=== PATIENT | female | born 1990 | race African-American/Black ===

== ENCOUNTER 2020-11-23 18:58 | Emergency (ER) | payer BC ==
[~2020-11-23] VITALS: Ht 190.5 cm; Wt 82.0 kg
[2020-11-23] MEDS ORDERED: LIDOCAINE HCL/EPINEPHRINE 1%-EPI 1:100,000 20 ML VIAL INFIL ONE (20:30)
[2020-11-23] MEDS ORDERED: AMOX-424 MT (22:53)
[2020-11-23] MEDS ORDERED: IBUP-2029 MT (22:53)
[2020-11-23 23:00] VITALS: BP 128/68
== END 2020-11-24 00:12 | disposition home or self-care (01) ==
LOC: ER 18:58
DX: S01.511A Laceration without foreign body of lip, initial encounter (principal); V49.49XA Driver injured in collision with other motor vehicles in traffic accident, initial encounter; Y93.89 Activity, other specified; Y92.89 Other specified places as the place of occurrence of the external cause; Y99.8 Other external cause status
CPT/HCPCS: 12015; 99282; J3490

== ENCOUNTER 2020-11-30 19:32 | Emergency (ER) | payer BC ==
[~2020-11-30] VITALS: Ht 190.5 cm; Wt 82.0 kg
[~2020-11-30 19:32] MED LIST: AMOX-424 MT; IBUP-2029 MT
[2020-11-30 19:46] VITALS: BP 115/72
== END 2020-11-30 20:27 | disposition home or self-care (01) ==
LOC: ER 19:32
DX: S01.81XD Laceration without foreign body of other part of head, subsequent encounter (principal); Z88.8 Allergy status to other drugs, medicaments and biological substances; Z79.899 Other long term (current) drug therapy; X58.XXXD Exposure to other specified factors, subsequent encounter
CPT/HCPCS: 99281

== ENCOUNTER 2020-12-06 19:36 | Emergency (ER) | payer BC ==
[~2020-12-06] VITALS: Ht 190.5 cm; Wt 79.4 kg
[2020-12-06 19:40] VITALS: BP 121/73
== END 2020-12-06 20:57 | disposition home or self-care (01) ==
LOC: ER 19:36
DX: Z48.02 Encounter for removal of sutures (principal)
CPT/HCPCS: 99281; Z7610

== ENCOUNTER 2020-12-19 15:07 | Emergency (ER) | payer BC, MEDICAID ==
[~2020-12-19] VITALS: Ht 190.5 cm; Wt 84.0 kg
[2020-12-19] MEDS ORDERED: IBUPROFEN 400MG TABLET PO ONE (15:45)
[2020-12-19] MEDS ORDERED: ACETAMINOPHEN 325MG TABLET PO ONE (15:45)
[2020-12-19] MEDS ORDERED: TOPUD MT (15:52)
[2020-12-19 16:30] VITALS: BP 117/70
== END 2020-12-19 16:13 | disposition home or self-care (01) ==
LOC: ER 15:07
DX: S01.511A Laceration without foreign body of lip, initial encounter (principal); Z91.018 Allergy to other foods; W18.30XA Fall on same level, unspecified, initial encounter; Y93.89 Activity, other specified; Y92.89 Other specified places as the place of occurrence of the external cause; Y99.8 Other external cause status
CPT/HCPCS: 81025; 99283

== ENCOUNTER 2021-11-08 22:27 | Emergency (ER) | payer MEDICAID ==
[~2021-11-08] VITALS: Ht 177.8 cm; Wt 78.0 kg
[~2021-11-08 22:27] MED LIST changes: +TOPUD MT
[2021-11-08 22:36] VITALS: BP 122/85
== END 2021-11-08 23:00 | disposition left against medical advice (07) ==
LOC: ER 22:27
DX: Z53.21 Procedure and treatment not carried out due to patient leaving prior to being seen by health care provider (principal)

== ENCOUNTER 2021-11-15 21:54 | Emergency (ER) | payer MEDICAID ==
[~2021-11-15] VITALS: Ht 190.5 cm; Wt 91.0 kg
[2021-11-15 21:59] VITALS: BP 110/70
== END 2021-11-16 00:47 | disposition home or self-care (01) ==
LOC: ER 21:54
DX: U07.1 COVID-19 (principal); R53.83 Other fatigue; R43.9 Unspecified disturbances of smell and taste
CPT/HCPCS: 99282

== ENCOUNTER 2022-03-19 00:08 | Emergency (ER) | payer OTHER, MEDICAID ==
[~2022-03-19] VITALS: Ht 190.5 cm; Wt 87.0 kg
[2022-03-19] MEDS ORDERED: LIDOCAINE HCL/PF 1% 10 MG/ML 5ML VIAL INFIL ONE (01:30)
[2022-03-19] MEDS ORDERED: TETANUS, DIPHTHERIA, PERTUSSIS VAC/PF 0.5ML (>10YR OLD) IM ONE (01:30)
[2022-03-19] MEDS ORDERED: HYDROCODONE/ACETAMINOPHEN 5/325MG TABLET PO ONE (01:30)
[2022-03-19] MEDS ORDERED: BACITRACIN ZINC OINT UDPKT TOP ONE (01:30)
[2022-03-19] MEDS ORDERED: IBUP-2029 MT (03:56)
[2022-03-19] MEDS ORDERED: T3 PO (03:56)
[2022-03-19] MEDS ORDERED: KETOROLAC 60MG/2ML VIAL IM ONE (04:15)
[2022-03-19 04:17] VITALS: BP 146/76
== END 2022-03-19 04:19 | disposition home or self-care (01) ==
LOC: ER 00:26
DX: S32.9XXA Fracture of unspecified parts of lumbosacral spine and pelvis, initial encounter for closed fracture (principal); S01.111A Laceration without foreign body of right eyelid and periocular area, initial encounter; Y08.89XA Assault by other specified means, initial encounter; Y93.89 Activity, other specified; Y92.89 Other specified places as the place of occurrence of the external cause; Y99.8 Other external cause status; Z79.899 Other long term (current) drug therapy
CPT/HCPCS: 72170; 81025; 90471; 90715; 96372; 99284; J1885; J3490; Z7610

== ENCOUNTER 2022-03-22 23:51 | Emergency (ER) | payer OTHER, MEDICAID ==
[~2022-03-22] VITALS: Ht 190.5 cm; Wt 87.0 kg
[~2022-03-22 23:51] MED LIST changes: +T3 PO
[2022-03-23 00:21] VITALS: BP 117/65
[2022-03-23] MEDS ORDERED: BACITRACIN 15GM TUBE TOP ONE (06:30)
== END 2022-03-23 06:24 | disposition home or self-care (01) ==
LOC: ER 23:51
DX: S32.9XXA Fracture of unspecified parts of lumbosacral spine and pelvis, initial encounter for closed fracture (principal); Z48.01 Encounter for change or removal of surgical wound dressing; Y04.0XXA Assault by unarmed brawl or fight, initial encounter; Y93.9 Activity, unspecified; Y92.89 Other specified places as the place of occurrence of the external cause; Y99.8 Other external cause status
CPT/HCPCS: 99282